=== PATIENT | female | born 1980 | race Caucasian/White ===

== ENCOUNTER 2022-01-26 12:41 | Emergency (ER) | payer MEDICARE ==
--- NOTE | ~2022-01-26 | EKG ---
[facility] [address] [place], [place] [address] Draft EK completed, results pending confirmation PATIENT NAME: LATISHA QUINTANILLA Electrocardiogram DATE OF : 80 PHYSICIAN: PRELIMINARY REPORT #: [id number] REPORT IS CONFIDENTIAL AND NOT TO BE RELEASED WITHOUT AUTHORIZATION
[2022-01-26] MEDS ORDERED: METHIMAZOLE5 MG PO (14:51)
[2022-01-26] MEDS ORDERED: ATENOLOL25 MG PO (14:51)
== END 2022-01-26 15:27 | disposition home or self-care (01) ==
LOC: ED 12:41
DX: E05.90 Thyrotoxicosis, unspecified without thyrotoxic crisis or storm (principal); Z79.899 Other long term (current) drug therapy
CPT/HCPCS: 36415; 80053; 83735; 84439; 84443; 84484; 84703; 85025; 93005; 93010

== ENCOUNTER 2022-01-26 18:57 | Emergency (ER) | payer MEDICARE ==
[~2022-01-26] VITALS: Ht 162.6 cm; Wt 61.2 kg
[~2022-01-26 18:57] MED LIST: ATENOLOL25 MG PO; METHIMAZOLE5 MG PO
--- OUTSIDE RECORDS SUMMARY | 2022-01-26 19:05 | XMS ---
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 EJames VISIT COUNT (12 MO.) 2 [facility] TOTAL 2 NOTE: Visits indicate total known visits. ED/C VISIT TRACKING (12 MO.) 01/26/2022 18:58 [facility] [place] TYPE: Emergency COMPLAINT: - DIFFICULTY BREATHING 01/26/2022 12:42 [facility] [place] TYPE: Emergency COMPLAINT: - SOB,RACING HEART INPATIENT VISIT TRACKING (12 MO.) No inpatient visits to display in this time frame [id number]
== END 2022-01-26 21:58 | disposition home or self-care (01) ==
LOC: ED 18:57
DX: R00.2 Palpitations (principal); E05.90 Thyrotoxicosis, unspecified without thyrotoxic crisis or storm
CPT/HCPCS: 99284